=== PATIENT | male | born 1955 | race Caucasian/White ===

== ENCOUNTER 2017-02-25 16:40 | Emergency (ER) | payer MEDICAID ==
[~2017-02-25] VITALS: Ht 172.7 cm; Wt 90.0 kg
[~2017-02-25 16:40] MED LIST: FLUO10CA25; QUET25TA; TRAM50TA3
[2017-02-25] MEDS ORDERED: SODIUM CHLORIDE 0.9% 1,000 ML IV ONE (18:20)
[2017-02-25] MEDS ORDERED: LIDOCAINE HCL 1% 20ML VIAL (Pyxis) INJ INFIL ONE (18:30)
[2017-02-25 19:03] LABS: BASOPHILS % 0.5 % (0.0-2.0); HEMOGLOBIN. 13.2 g/dL (14.0-18.0); LYMPHOCYTES % 25.4 % (20.0-50.0); MEAN CORPUSCULAR HEMOGLOBIN 26.5 pg (28.0-32.0); MEAN CORPUSCULAR VOLUME 80.2 fL (80.0-94.0); MEAN PLATELET VOLUME 7.6 fl (7.4-10.4); MONOCYTES % 8.9 % (2.0-8.0); NEUTROPHILS % 64.2 % (40.0-76.0); PLATELET 167 x1000/uL (130-400); RED BLOOD CELL COUNT 4.99 mill/uL (4.7-6.1); RED CELL DISTRIBUTION WIDTH 20.6 % (11.6-14.6)
[2017-02-25 19:12] LABS: CARBON DIOXIDE 23 mEq/L (21-32); CHLORIDE 107 mEq/L (98-107)
[2017-02-25 19:17] LABS: ETHANOL BLOOD 214 mg/dL
[2017-02-25] MEDS ORDERED: POTASSIUM CHLORIDE 20MEQ TABLET SR PO ONE (21:00)
[2017-02-25 21:20] VITALS: BP 132/79
[2017-02-26 00:40] LABS: CLARITY URINE CLEAR (CLEAR); COLOR URINE YELLOW (YELLOW); GLUCOSE URINE NEGATIVE (NEGATIVE); KETONES URINE NEGATIVE (NEGATIVE); LEUKOCYTE ESTERASE URINE NEGATIVE (NEGATIVE); NITRITE URINE NEGATIVE (NEGATIVE); OCCULT BLOOD URINE NEGATIVE (NEGATIVE); PH URINE 6.5 (4.5-8.0); PROTEIN URINE 1+ (NEGATIVE); SPECIFIC GRAVITY URINE 1.016 (1.005-1.030)
[2017-02-26 00:51] LABS: *AMPHETAMINES SCREEN URINE NEGATIVE (NEGATIVE); *BARBITURATES SCREEN URINE NEGATIVE (NEGATIVE); *BENZODIAZEPINES SCREEN URINE PRESUMTIVE POSITIVE (NEGATIVE); *COCAINE SCREEN URINE NEGATIVE (NEGATIVE); CANNABINOID URINE SCREEN NEGATIVE (NEGATIVE); METHADONE URINE SCREEN NEGATIVE (NEGATIVE); OPIATES URINE SCREEN NEGATIVE (NEGATIVE); PHENCYCLIDINE URINE SCREEN NEGATIVE (NEGATIVE)
== END 2017-02-26 03:44 | disposition home or self-care (01) ==
LOC: ER 17:08
DX: S02.2XXA Fracture of nasal bones, initial encounter for closed fracture (principal); S01.111A Laceration without foreign body of right eyelid and periocular area, initial encounter; F10.129 Alcohol abuse with intoxication, unspecified; W19.XXXA Unspecified fall, initial encounter; Y93.89 Activity, other specified; Y92.89 Other specified places as the place of occurrence of the external cause; Y99.8 Other external cause status
CPT/HCPCS: 12011; 36415; 70450; 70486; 72125; 80053; 80305; 80307; 80329; 81001; 82962; 85025; 96360; 99285; G0482; J3490; J7030; Z7610

== ENCOUNTER 2018-04-04 10:31 | Emergency (ER) | payer MEDICAID ==
[~2018-04-04] VITALS: Ht 175.3 cm; Wt 90.0 kg
[2018-04-04 11:45] VITALS: BP 133/88
[2018-04-04] MEDS ORDERED: KETOROLAC 30MG/ML VIAL IM ONE (11:45)
== END 2018-04-04 14:07 | disposition home or self-care (01) ==
LOC: ER 10:31
DX: M10.9 Gout, unspecified (principal); M19.90 Unspecified osteoarthritis, unspecified site; M54.12 Radiculopathy, cervical region; I10 Essential (primary) hypertension; F31.9 Bipolar disorder, unspecified; R53.1 Weakness; F10.20 Alcohol dependence, uncomplicated; Y90.9 Presence of alcohol in blood, level not specified
CPT/HCPCS: 73562; 93971; 96372; 99284; J1885

== ENCOUNTER 2018-07-27 03:29 | Emergency (ER) | payer MEDICAID ==
[~2018-07-27] VITALS: Ht 177.8 cm; Wt 95.0 kg
[2018-07-27 05:41] VITALS: BP 153/97
== END 2018-07-27 10:23 | disposition left against medical advice (07) ==
LOC: ER 03:29
DX: M79.18 Myalgia, other site (principal); Z53.21 Procedure and treatment not carried out due to patient leaving prior to being seen by health care provider

== ENCOUNTER 2019-10-05 02:13 | Emergency (ER) | payer MEDICAID ==
[~2019-10-05] VITALS: Ht 172.7 cm; Wt 113.0 kg
[2019-10-05] MEDS ORDERED: ONDANSETRON HCL 4MG/2ML INJ IV STA (03:58)
[2019-10-05] MEDS ORDERED: SODIUM CHLORIDE 0.9% 1,000 ML IV ONE (03:58)
[2019-10-05 08:19] VITALS: BP 148/80
== END 2019-10-05 08:22 | disposition home or self-care (01) ==
LOC: ER 02:13
DX: F10.129 Alcohol abuse with intoxication, unspecified (principal); G93.40 Encephalopathy, unspecified; R41.82 Altered mental status, unspecified; I10 Essential (primary) hypertension; Z79.899 Other long term (current) drug therapy; Y90.9 Presence of alcohol in blood, level not specified
CPT/HCPCS: 96361; 96374; 99283; J2405; J7030

== ENCOUNTER 2019-10-06 21:22 | Emergency (ER) | payer MEDICAID ==
[~2019-10-06] VITALS: Ht 175.3 cm; Wt 75.0 kg
[2019-10-06] MEDS ORDERED: SODIUM CHLORIDE 0.9% 1,000 ML IV ONE (22:01)
[2019-10-06 22:29] LABS: BASOPHILS % 0.8 % (0.0-2.0); EOSINOPHILS % 2.9 % (0.0-5.0); HEMATOCRIT. 41.1 % (42.0-52.0); HEMOGLOBIN. 13.9 g/dL (14.0-18.0); LYMPHOCYTES % 31.7 % (20.0-50.0); MONOCYTES % 4.4 % (2.0-8.0); NEUTROPHILS % 60.2 % (40.0-76.0); RED BLOOD CELL COUNT 4.62 mill/uL (4.7-6.1); RED CELL DISTRIBUTION WIDTH 17.1 % (11.6-14.6)
[2019-10-06 22:32] LABS: CHLORIDE 103 mEq/L (98-107)
[2019-10-07 00:58] VITALS: BP 125/84
== END 2019-10-07 00:58 | disposition home or self-care (01) ==
LOC: ER 21:22
DX: F10.229 Alcohol dependence with intoxication, unspecified (principal); Y90.0 Blood alcohol level of less than 20 mg/100 ml; E86.0 Dehydration; F31.9 Bipolar disorder, unspecified; I10 Essential (primary) hypertension; Z79.899 Other long term (current) drug therapy
CPT/HCPCS: 36415; 71045; 80053; 84484; 85025; 93005; 99285; J7030

== ENCOUNTER 2019-10-07 03:52 | Emergency (ER) | payer MEDICAID ==
[~2019-10-07] VITALS: Ht 172.7 cm; Wt 92.1 kg
[2019-10-07 04:26] VITALS: BP 134/75
== END 2019-10-07 05:32 | disposition left against medical advice (07) ==
LOC: ER 04:16
DX: R10.9 Unspecified abdominal pain (principal); Z53.21 Procedure and treatment not carried out due to patient leaving prior to being seen by health care provider

== ENCOUNTER 2020-06-15 03:49 | Emergency (ER) | payer MEDICAID ==
[~2020-06-15] VITALS: Ht 177.8 cm; Wt 79.0 kg
[2020-06-15] MEDS ORDERED: ACETAMINOPHEN 325MG TABLET PO ONE (04:30)
[2020-06-15 09:56] VITALS: BP 132/78
== END 2020-06-15 09:57 | disposition home or self-care (01) ==
LOC: ER 04:22
DX: S80.02XA Contusion of left knee, initial encounter (principal); E78.00 Pure hypercholesterolemia, unspecified; I10 Essential (primary) hypertension; Z98.890 Other specified postprocedural states; Y04.0XXA Assault by unarmed brawl or fight, initial encounter; Y93.89 Activity, other specified; Y92.89 Other specified places as the place of occurrence of the external cause; Y99.8 Other external cause status
CPT/HCPCS: 73562; 99283